=== PATIENT | male | born 1960 | race Caucasian/White ===

== ENCOUNTER 2019-08-13 11:52 | Emergency (ER) | payer OTHER ==
[~2019-08-13] VITALS: Ht 172.7 cm; Wt 64.9 kg
== END 2019-08-13 16:23 | disposition home or self-care (01) ==
LOC: ER 11:52
DX: S00.83XA Contusion of other part of head, initial encounter (principal); W18.09XA Striking against other object with subsequent fall, initial encounter; Y93.89 Activity, other specified; Y92.89 Other specified places as the place of occurrence of the external cause; Y99.8 Other external cause status

== ENCOUNTER 2019-09-15 10:07 | Emergency (ER) | payer OTHER ==
[~2019-09-15] VITALS: Ht 172.7 cm; Wt 64.9 kg
[2019-09-15] MEDS ORDERED: ZONALON30 GM TP (10:17)
[2019-09-15] MEDS ORDERED: SILENOR6 MG (10:17)
== END 2019-09-15 13:59 | disposition home or self-care (01) ==
LOC: ER 10:07
DX: J06.9 Acute upper respiratory infection, unspecified (principal)

== ENCOUNTER 2021-12-01 22:40 | Inpatient (IN) | payer OTHER ==
[~2021-12-01] VITALS: Ht 172.7 cm; Wt 68.9 kg
[~2021-12-01 22:40] MED LIST: SILENOR6 MG; ZONALON30 GM TP
[2021-12-03] MEDS ORDERED: FLUOXETINE HCL10 MG (10:48)
[2021-12-05] MEDS ORDERED: INTESTINEX680 M1 PO (13:37)
[2021-12-05] MEDS ORDERED: CIPRO500 MG PO (13:37)
[2021-12-05] MEDS ORDERED: METRONIDAZOLE500 MG PO (13:38)
== END 2021-12-05 14:10 | disposition home or self-care (01) | DRG 372 ==
LOC: ER 22:40 → MEDJ 12-02 10:14 → MEDI 12-02 21:04
PROVIDERS: ADMIT Internal Medicine; ATTEND Internal Medicine
PROC: BW21YZZ Computerized Tomography (CT Scan) of Abdomen and Pelvis using Other Contrast (ICD-10-PCS; principal; 2021-12-02)
DX: A04.72 Enterocolitis due to Clostridium difficile, not specified as recurrent (principal); N39.0 Urinary tract infection, site not specified; E86.0 Dehydration; E87.8 Other disorders of electrolyte and fluid balance, not elsewhere classified; Z20.822 Contact with and (suspected) exposure to COVID-19

== ENCOUNTER 2023-06-27 13:33 | Emergency (ER) | payer OTHER ==
[~2023-06-27] VITALS: Ht 172.7 cm; Wt 64.9 kg
[~2023-06-27 13:33] MED LIST changes: +CIPRO500 MG PO; +FLUOXETINE HCL10 MG; +INTESTINEX680 M1 PO; +METRONIDAZOLE500 MG PO
[2023-06-27 14:33] LABS: HEMATOCRIT 42.9 % (39.0-48.0); HEMOGLOBIN 14.5 g/dL (13-16.00); MEAN CELL VOLUME 96.5 fL (80.0-100.00); MEAN CORPUSCULAR HEMOGLOBIN 32.7 pg (27.00-32.0); MEAN CORPUSCULAR HGB CONC 33.9 g/dl (32.0-36.0); PLATELET COUNT 220 K/uL (150-450); RED BLOOD COUNT 4.45 M/uL (4.00-6.00); RED CELL DISTRIBUTION WIDTH 12.8 % (11.5-14.5)
[2023-06-27 16:07] LABS: URINE APPEARANCE Clear; URINE BILIRRUBIN Negative (NEGATIVE); URINE BLOOD Negative; URINE COLOR Yellow; URINE GLUCOSE Negative (NEGATIVE); URINE LEUKOCYTE Negative; URINE NITRATE Negative; URINE PROTEIN Negative (NEGATIVE); URINE UROBILINOGEN 0.2 E.U./dl
[2023-06-27 16:47] LABS: URINE RBC 0.5 uL (0.0-20.8); URINE WBC 0.7 uL (0.0-23.2)
== END 2023-06-27 18:05 ==
LOC: ER 13:33
PROVIDERS: General Practice
DX: J02.9 Acute pharyngitis, unspecified (principal); Z20.822 Contact with and (suspected) exposure to COVID-19; Z88.0 Allergy status to penicillin; Z88.6 Allergy status to analgesic agent

== ENCOUNTER 2024-08-26 11:09 | Emergency (ER) | payer OTHER ==
[~2024-08-26] VITALS: Ht 172.7 cm; Wt 64.4 kg
[~2024-08-26 11:09] MED LIST changes: +DOXEPIN HCL25 MG; +PROZAC20 MG; +RESTORIL30 M1
[2024-08-26] MEDS ORDERED: 0.9 % SODIUM CHLORIDE 1,000 ML IV STA (11:24)
[2024-08-26 12:30] LABS: HEMATOCRIT 45.4 % (39.0-48.0); HEMOGLOBIN 15.7 g/dL (13-16.00); MEAN CELL VOLUME 96.4 fL (80.0-100.00); MEAN CORPUSCULAR HEMOGLOBIN 33.2 pg (27.00-32.0); MEAN CORPUSCULAR HGB CONC 34.5 g/dl (32.0-36.0); PLATELET COUNT 240 K/uL (150-450); RED BLOOD COUNT 4.71 M/uL (4.00-6.00); RED CELL DISTRIBUTION WIDTH 12.6 % (11.5-14.5)
[2024-08-26 12:49] LABS: CALCIUM 8.9 mg/dL (8.5-10.1); CREATININE SERUM 1.05 mg/dL (0.70-1.30); GFR 71.57; POTASSIUM 4.12 mEq/L (3.5-5.1)
[2024-08-26 13:13] LABS: URINE APPEARANCE Clear; URINE BILIRRUBIN Negative (NEGATIVE); URINE BLOOD Negative; URINE COLOR Yellow; URINE GLUCOSE Negative (NEGATIVE); URINE KETONE Negative (NEGATIVE); URINE LEUKOCYTE Negative; URINE NITRATE Negative; URINE PROTEIN Negative (NEGATIVE); URINE UROBILINOGEN 0.2 E.U./dl
[2024-08-26 13:16] LABS: URINE EPITHELIAL CELLS 2.8 uL (0.0-38.8); URINE RBC 3.5 uL (0.0-20.8); URINE WBC 4.1 uL (0.0-23.2)
[2024-08-26 13:23] LABS: URINE CAST 0.14 uL (0.0-1.40)
[2024-08-26] MEDS ORDERED: METRONIDAZOLE/SODIUM CHLORIDE 500 MG/100 ML PIGGYBACK IV ONE (15:00)
[2024-08-26] MEDS ORDERED: CIPROFLOXACIN IN 5 % DEXTROSE 400 MG/200 ML PIGGYBAG IV ONE (15:00)
== END 2024-08-26 17:08 | disposition home or self-care (01) ==
LOC: ER 11:11
PROVIDERS: Emergency Medicine
DX: R19.7 Diarrhea, unspecified (principal); Z88.6 Allergy status to analgesic agent; Z88.0 Allergy status to penicillin; Z88.8 Allergy status to other drugs, medicaments and biological substances